=== PATIENT | female | born 2005 | race Two or more races ===

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

== ENCOUNTER 2025-04-26 09:08 | Outpatient (CLI) | payer OTHER, SELFPAY ==
--- NOTE | ~2025-04-26 | US_ITS ---
Examination: Ultrasound of the retroperitoneum including kidneys and bladder. Clinical History: R80.9 - Proteinuria, unspecified . Comparison: CT abdomen pelvis 09/17/2024. Findings: Right kidney: 10 cm. Normal echogenicity. No collecting system dilatation. No shadowing calculi. Left kidney: 10 cm. Normal echogenicity. No collecting system dilatation. No shadowing calculi. Urinary bladder: No wall thickening or focal abnormality. Bilateral ureteral jets seen. IMPRESSION: 1. Unremarkable. Reviewed, dictated and finalized at location R. [facility] IMPRESSION: 1. Unremarkable.
== END 2025-04-26 09:09 | disposition home or self-care (01) ==
PROVIDERS: PCP Emergency Medicine; Visit Provider Internal Medicine Nephrology
DX: R80.9 Proteinuria, unspecified (principal)
CPT/HCPCS: 76770